=== PATIENT | female | born 1955 | race Caucasian/White ===

== ENCOUNTER 2023-08-31 12:17 | Outpatient (REF) | payer MEDICARE, SELFPAY | END 2023-08-31 12:18 | disposition home or self-care (01) | LOC: HO.BBR 12:17 | PROVIDERS: PCP Internal Medicine; Visit Provider Internal Medicine Hematology | DX: Z13.89 Encounter for screening for other disorder (principal) ==

== ENCOUNTER 2024-01-14 12:09 | Outpatient (REF) | payer MEDICARE, SELFPAY | END 2024-01-14 12:10 | disposition home or self-care (01) | LOC: HO.BBR 12:09 | PROVIDERS: PCP Internal Medicine; Visit Provider Internal Medicine Hematology | DX: Z13.89 Encounter for screening for other disorder (principal) ==

== ENCOUNTER 2024-04-27 13:24 | Outpatient (REF) | payer MEDICARE, SELFPAY ==
--- OUTSIDE RECORDS SUMMARY | 2024-04-27 14:50 | XMS_ITS | Patient Health Record ---
Author Organization [facility] Address [address] [place] [address] Care Team Providers Care Day Porter Name Role Phone Ko IBANEZ, Vidhi Primary Care Provider Carolynn De Unavailable [phone] Allergies Allergen (clinical drug ingredient) Drug/Non Drug Allergy documented on EMR Reaction Allergy Type Onset Date Status DARVON Unknown Drug Allergy Active meperidine DEMEROL Unknown Drug Allergy Active Reason For Referral No Information Medications Medication SIG (Take, Route, Fr equency, Duration) Notes Start Date End Date Status buPROPion HCl Active Yuvafem 10 MCG 1 tablet Vaginal THR ICE A WEEK for 90 days 01/08/2017 Active Gabapentin 300 MG 1 capsule Orally Once a day Active Levoxyl 112MCG 1 ORAL DAILY for -3 10/27/2011 Active Ambien 5 MG 1 tablet at bedtime as needed Orally Once a day Active Social History Tobacco Use: Social History Observation Description Date Details (start date - stop date) Never Smoker NA - NA Tobacco Use/Smoking Question Answer Notes Are you a nonsmoker Alcohol Screen (Audit-C) Question Answer Notes Did you have a drink contain ing alcohol in the past year? Yes How often did you have a dri nk containing alcohol in the past year? 2 to 4 times a month (2 points) How many drinks did you have on a typical day when you were drinking in the past year? 1 or 2 drinks (0 point) Points 2 Interpretation Negative Sexual History Question Answer Notes Had sex in the past 12 months (vaginal, oral, or anal)? Yes with Men only Prevention strategies discussed: Other Problems Problem Type SNOMED Code ICD Code Onset Dates Problem Status W/U Status Risk Notes Problem Postmenopausal atrophic vaginitis (17844145) Postmenopausal atrophic vaginitis (N95.2) Active confirmed Problem Benign neoplasm of colon (41103907) Benign neoplasm of colon (211.3) Active confirmed Major Problem Chronic lymphocytic thyroiditis (22240245) Chronic lymphocytic thyroiditis (245.2) Active confirmed Major Problem Depressive disorder (57750740) Depressive disorder, not elsewhere classified (311) Active confirmed Major Problem Menopausal symptom (69828545) Symptomatic menopausal or female climacteric states (627.2) Active confirmed Major Problem Postmenopausal atrophic vaginitis (29207557) Postmenopausal atrophic vaginitis (627.3) Active confirmed Diag Problem Gynecological examination normal (452675050221984) Routine gynecological examination (V72.31) Active confirmed Major Problem Screening for malignant neoplasm of colon (354786868) Special screening for malignant neoplasms, colon (V76.51) Active confirmed Major Plan Of Treatment Pending Test Test Name Order Date Urinalysis 04/16/2020 THIN PREP,HPV,RUBINA IF HPV+ (>29YR)(SCRN) 01/08/2017 BONE DENSITY 01/08/2017 Medical (General) History Medical History History ICD Code Postmenopausal atrophic vaginitis N95.2 Autoimmune thyroiditis E06.3 Benign neoplasm of colon, unspecified D1 2.6 Menopausal and female climacteric states N95.1 Other specified depressive episodes F32. 89 Surgical History Surgery Date(Month/Year) x 3 Bilateral Tubal Ligation Colonoscopy Cholecystectomy 2016 Hospitalization History Reason Date(Month/Year) 1 Vaginal Delivery 3 Deliveries See Surgical Hx
== END 2024-04-27 13:25 | disposition home or self-care (01) ==
LOC: HO.BBR 13:24
PROVIDERS: PCP Internal Medicine; Visit Provider Internal Medicine Hematology
DX: Z13.89 Encounter for screening for other disorder (principal)

== ENCOUNTER 2024-08-15 14:10 | Outpatient (REF) | payer MEDICARE, SELFPAY ==
--- OUTSIDE RECORDS SUMMARY | 2024-08-15 15:25 | XMS_ITS | Patient Health Record ---
Author Organization [facility] Address [address] [place] [address] Care Team Providers Care Code Official Name Role Phone Ko IBANEZ, Vidhi Primary Care Provider Carolynn De Unavailable [phone] Allergies Allergen (clinical drug ingredient) Drug/Non Drug [...] Status Risk Notes Problem Postmenopausal atrophic vaginitis (75570996) Postmenopausal atrophic vaginitis (N95.2) Active confirmed Problem Benign neoplasm of colon (10219184) Benign neoplasm of colon (211.3) Active confirmed Major Problem Chronic lymphocytic thyroiditis (42863421) Chronic lymphocytic thyroiditis (245.2) Active confirmed Major Problem Depressive disorder (80912326) Depressive disorder, not elsewhere classified (311) Active confirmed Major Problem Menopausal symptom (23595786) Symptomatic menopausal or female climacteric states (627.2) Active confirmed Major Problem Postmenopausal atrophic vaginitis (34840598) Postmenopausal atrophic vaginitis (627.3) Active confirmed Diag Problem Gynecological examination normal (231175353658635) Routine gynecological examination (V72.31) Active confirmed Major Problem Screening for malignant neoplasm of colon (884711762) Special screening for malignant neoplasms, colon (V76.51) [...]
== END 2024-08-15 14:11 | disposition home or self-care (01) ==
LOC: HO.BBR 14:10
PROVIDERS: PCP Internal Medicine; Visit Provider Internal Medicine Hematology
DX: Z13.89 Encounter for screening for other disorder (principal)

== ENCOUNTER 2024-12-05 13:00 | Outpatient (REF) | payer MEDICARE, SELFPAY | END 2024-12-05 13:01 | disposition home or self-care (01) | LOC: HO.BBR 13:00 | PROVIDERS: PCP Internal Medicine; Visit Provider Internal Medicine Hematology | DX: Z13.89 Encounter for screening for other disorder (principal) ==